=== PATIENT | female | born 1960 | race Caucasian/White ===

== ENCOUNTER 2020-08-18 19:00 | Emergency (ER) | payer OTHER, SELFPAY ==
[2020-08-18 19:14] VITALS: BP 111/84; PULSE 83; RESP 16; TEMP 36.5; O2SAT 100
--- NOTE | 2020-08-18 19:23 | ED.NECK ---
HPI - Neck Pain/Injury General Chief Complaint: Neck Pain/Injury Stated Complaint: Neck Pain History of Present Illness HPI Narrative: This is a 59-year-old female comes in complaining of neck pain states she has been having it for approximately 1 month. Patient states she does a lot of bending over and strain patient states that the pain hurts when she turns her head or when there is any pressure applied to the back shoulders or neck patient states she is only been taking ibuprofen. Patient denies any falls or any injuries her sudden turns of the neck and no car accident Related Data Home Medications Medication Instructions Recorded Confirmed levothyroxine [Euthyrox] 08/18/20 Allergies Allergy/AdvReac Type Severity Reaction Status Date / Time diphenhydramine Allergy Hives Verified 08/18/20 19:16 [From Benadryl] Penicillins AdvReac Hives Verified 08/18/20 19:16 Review of Systems Review of Systems: Narrative: CONSTITUTIONAL: Denies fever, chills, or sweats. EYES: Denies visual changes, redness, or discharge. ENT: Denies rhinorrhea, congestion, sore throat, or otalgia. CARDIOVASCULAR:Denies chest pain, palpitations, or edema. RESPIRATORY: Denies cough or dyspnea. GASTROINTESTINAL: Denies abdominal pain, nausea, vomiting, or diarrhea. GENITOURINARY: Denies dysuria or hematuria. SKIN:[Denies rash or itching. MUSCULOSKELETAL: Reports back pain, joint pain, or myalgia. NEUROLOGIC: Denies headache, numbness, or weakness. PSYCHIATRIC:Denies anxiety or depression PMFSH Comments At time as signature, I have reviewed and agree with nursing past medical, social, surgical and family history. Please see nursing chart for further information. There is no relevant family history pertinent to the presenting complaint. Exam Narrative: Exam Narrative: GENERAL:Well-appearing, well-nourished, and in no acute distress. HEAD:Normocephalic, atraumatic. EYES: PERRLA and EOMI. ENT: Nares clear, no rhinorrhea or epistaxis. Mucous membranes moist. NECK: Supple. Back of the neck towards the shoulders pain with palpitation no stiffness CHEST: Clear to auscultation. No respiratory distress. HEART: Regular rate and rhythm. No murmur heard. Normal peripheral pulses. ABDOMEN: Soft, nontender, nondistended, normal active bowel sounds. EXTREMITIES: Normal range of motion. No edema. SKIN: Warm, dry, no rash. NEURO: No focal deficits. Alert and oriented x3. Course Vital Signs Vital signs: Vital Signs Temperature 97.7 F 08/18/20 19:14 Pulse Rate 83 08/18/20 19:14 Respiratory Rate 16 08/18/20 19:14 Blood Pressure 111/84 08/18/20 19:14 Pulse Oximetry 100 08/18/20 19:14 Temperature 97.7 F 08/18/20 19:14 Pulse Rate 83 08/18/20 19:14 Respiratory Rate 16 08/18/20 19:14 Blood Pressure 111/84 08/18/20 19:14 Pulse Oximetry 100 08/18/20 19:14 MDM - Neck Pain/Injury MDM Narrative Medical decision making narrative: Discussed the need for whether or not she she needed the x-ray at this time patient agrees to try oral medication and if symptoms continue or persist with no improvement she will return for an x-ray Differential Diagnosis Differential diagnosis: Likely cervical radiculopathy and strain of neck muscle Discharge Plan Discharge Clinical Impression: Strain of neck muscle Qualifiers: Encounter type: initial encounter Qualified Code(s): S16.1XXA - Strain of muscle, fascia and tendon at neck level, initial encounter Patient Disposition: Home, Self-Care Condition: Stable Instructions: Antibiotic Form, Cervical Strain (ED) Additional Instructions: Avoid weight bearing until the pain subsides. Ice to the area 20-30 minutes 4-6 times a day Tylenol for lesser pain Ibuprofen regularly for the next 2-3 days for the inflammation Follow up with your primary care provider if the condition is not improving within 1 week or sooner if the condition worsens with numbness, tingling, decrease sensati
== END 2020-08-18 19:31 | disposition home or self-care (01) ==
PROVIDERS: Emergency Provider Nurse Practitioner Family
DX: S16.1XXA Strain of muscle, fascia and tendon at neck level, initial encounter (principal); X58.XXXA Exposure to other specified factors, initial encounter; E03.9 Hypothyroidism, unspecified
CPT/HCPCS: 99213; G0463